=== PATIENT | male | born 1970 | race Caucasian/White ===

== ENCOUNTER → 2018-04-26 11:32 | Outpatient (CLI) | payer OTHER, SELFPAY ==
--- NOTE | 2018-04-26 | DI.RAD.S_ITS ---
PROCEDURE: XR CHEST 2V INDICATIONS: FRACTURE OF LEFT RIBS, PNEUMOTHORAX, HEMOTHORAX TECHNIQUE: 2 views of the chest were acquired. COMPARISON: None. FINDINGS: Surgical changes and devices: None. Lungs and pleura: No pneumothorax. There is likely a small left pleural effusion and consolidation at the left lung base. Mediastinum: Mediastinal contours are normal. Heart size is normal. Bones and chest wall: There is a displaced posterior left sixth and seventh rib fractures. There may be a displaced eighth rib fracture as well which is poorly characterized. No other chest wall abnormalities. IMPRESSION: 1. Displaced posterior left rib fractures as above. 2. Left pleural effusion and probable basilar consolidation. Left hemothorax could be considered in the differential given chest wall trauma. Short interval followup is recommended with resolution of the patient's symptoms to ensure there is no underlying pulmonary pathology. Dictated by: Radha Moctezuma M.D. on 04/26/2018 at 11:59 Approved by: Radha Moctezuma M.D. on 04/26/2018 at 12:00
== END ==
PROVIDERS: Visit Provider Student in an Organized Health Care Education/Training Program
DX: S22.42XA Multiple fractures of ribs, left side, initial encounter for closed fracture (principal); J90 Pleural effusion, not elsewhere classified
CPT/HCPCS: 71046

== ENCOUNTER → 2018-05-12 14:45 | Outpatient (CLI) | payer OTHER, SELFPAY ==
--- NOTE | 2018-05-12 | DI.RAD.S_ITS ---
PROCEDURE: XR CHEST 2V INDICATIONS: PNEUMOTHARAX TECHNIQUE: 2 views of the chest were acquired. COMPARISON: [facility], CR, XR CHEST 2V, 04/26/2018, 11:15. FINDINGS: Surgical changes and devices: None. Lungs and pleura: No pleural effusions or pneumothorax. Lungs are clear. Mediastinum: Mediastinal contours are normal. Heart size is normal. Bones and chest wall: Healing left sixth posterior rib fracture redemonstrated. No suspicious bony abnormalities. Soft tissues appear unremarkable. IMPRESSION: 1. Subacute left sixth posterior rib fracture otherwise no acute cardiopulmonary disease. No pneumonia or pneumothorax. Dictated by: Joaquín Mckee RRA Interpreted: Matt Morales MD on 05/12/2018 at 15:45 Approved by: Matt Morales M.D. on 05/13/2018 at 9:44
== END ==
PROVIDERS: Visit Provider Student in an Organized Health Care Education/Training Program
DX: S22.32XD Fracture of one rib, left side, subsequent encounter for fracture with routine healing (principal); R05 Cough
CPT/HCPCS: 71046

== ENCOUNTER 2018-09-27 18:07 | Emergency (ER) | payer OTHER, SELFPAY ==
[2018-09-27 18:19] VITALS: BP 155/97; PULSE 105; RESP 14; TEMP 36.4; O2SAT 98; BMI 35.2
--- NOTE | 2018-09-27 19:55 | PC.NURSE ---
Pt states that 2 weeks ago he was at work,developed a blister like rash that itched on his arms and chest. Pt states that he went home,took some Benadryl and it went away. Pt concerned that around his abdomen thought since he has pain that feels deep within. It happened again at work 3 days ago,took Benadryl again and it went away. Pt still having pain around lower abdomen. Pt denies any difficulty breathing
--- NOTE | 2018-09-27 20:12 | ED.SKABFB ---
HPI - Skin/Abscess/Foreign Bdy General Chief complaint: Skin/Abscess/Foreign Body Stated complaint: Thinks shingles Time Seen by Provider: 09/27/18 19:23 Source: patient Mode of arrival: ambulatory Limitations: no limitations History of Present Illness HPI narrative: Otherwise healthy 48-year-old male here for evaluation of burning sensation on his bilateral lower abdomen around his pant line for the past several weeks. He states several weeks ago he also had itching on his arms and upper body. He denies any new exposures. No new soaps lotions or shampoos. No fevers. He is concerned about shingles. No blisters. Related Data Previous Rx's Medication Instructions Recorded acyclovir 800 mg PO 5XD 7 Days #35 tab 09/27/18 Allergies Allergy/AdvReac Type Severity Reaction Status Date / Time No Known Drug Allergies Allergy Verified 09/27/18 18:19 Review of Systems Constitutional Denies fever(s) Eyes Denies itchy eyes ENT Ears, Nose, Mouth, and Throat: Denies throat swelling Cardiovascular Denies chest pain and Denies dyspnea Respiratory Denies dyspnea and Denies wheezing Gastrointestinal Gastrointestinal: Denies abdominal pain Integumentary/Breasts Reports pruritus and Reports rash (Which has now resolved) Allergic/Immunologic Denies urticaria, Denies itchy eyes, Denies seasonal rhinorrhea, Denies throat swelling and Denies wheezing [facility] Medical History Healthy adult (Acute) Social History Smoking Status: Current some day smoker Social History Smoking Status: Current some day smoker Exam Initial Vital Signs Initial Vital Signs: Vital Signs Temperature 97.6 F 09/27/18 18:19 Pulse Rate 105 H 09/27/18 18:19 Respiratory Rate 14 09/27/18 18:19 Blood Pressure 155/97 H 09/27/18 18:19 Pulse Oximetry 98 09/27/18 18:19 Const General: cooperative, comfortable, well developed, well groomed and No acute distress Orientation: alert, awake and oriented x3 HENMT Head: normal to inspection and normocephalic Resp Effort & Inspection: normal respiratory effort Auscultation: clear to auscultation bilaterally Cardio Rate: regular rate Rhythm: regular rhythm Skin Lesions: no lesions Rashes: no rashes Trauma: no abrasions Neuro General: alert, awake and oriented x3 Cognition: normal cognition Speech: speech normal Extrem General: normal to inspection and capillary refill normal Course Vital Signs - 8 hr 09/27/18 18:19 Temperature 97.6 F Pulse Rate 105 H Respiratory Rate 14 Blood Pressure 155/97 H Pulse Oximetry 98 MDM - Skin/Abscess/Foreign Bdy MDM Narrative Medical decision making narrative: Patient has no rash today. Has had burning in his lower abdomen for the past several weeks without any rash. Is also bilateral. Informed him that this is most likely not shingles given the fact that it is bilateral and has not developed a rash in the past several weeks. I do suspect this is a contact dermatitis. Patient was extremely concerned about shingles. Will send home with a prescription for antivirals. Informed him that he should wait to see if any rash develops if it does then he can start taking it. Otherwise he should follow up with his primary doctor. We did discuss the use of antihistamines. He was given return precautions. He expressed understanding and agreement with plan. Discharge Plan Departure Patient Disposition: Home Clinical Impression: Rash, Pruritus Discharge Date/Time: 09/27/18 20:29 Interventions: ED Discharge Assessment Last Done: 09/27/18 20:29 Instructions: DI for Rash, DI for Itching Activity Restrictions/Additional Instructions: Recommend he start taking a daily allergy medication. You can take the shingles medicine like we discussed. Also recommend you take a moisturizing cream. Contact your primary care doctor as a follow-up. Return to the emergency department for any new or worsening symptoms Prescriptions: New acyclovir 800 mg tablet 800 mg PO 5XD 7 Days Qty: 35 RF: 0 Referrals: Ethel Beck PA-C [Primary Care Provider] -
== END 2018-09-27 20:29 | disposition home or self-care (01) ==
PROVIDERS: Emergency Provider Emergency Medicine; PCP Physician Assistant
DX: R21 Rash and other nonspecific skin eruption (principal); L29.9 Pruritus, unspecified
CPT/HCPCS: 99282; 99283

== ENCOUNTER 2019-09-08 19:53 | Emergency (ER) | payer OTHER, SELFPAY ==
[2019-09-08 20:00] VITALS: BP 170/108; PULSE 76; RESP 15; TEMP 36.6; O2SAT 96; BMI 35.2
--- NOTE | 2019-09-08 20:13 | DI.RAD.S_ITS ---
PROCEDURE: XR CHEST 1V INDICATIONS: Possible stroke TECHNIQUE: One view of the chest was acquired. COMPARISON: [facility], CR, XR CHEST 2V, 05/12/2018, 14:54. FINDINGS: Surgical changes and devices: None. Lungs and pleura: Lungs are clear. No pleural effusions or pneumothorax. Mediastinum: Mediastinal contours appear normal. Heart size is normal. Bones and chest wall: No suspicious bony lesions. Overlying soft tissues appear unremarkable. IMPRESSION: No acute cardiopulmonary pathology. Dictated by: Moises Mitchell M.D. on 09/08/2019 at 20:31 Approved by: Moises Mitchell M.D. on 09/08/2019 at 20:34
--- NOTE | 2019-09-08 20:13 | DI.CT.S_ITS ---
PROCEDURE: CT HEAD/BRAIN WO CON INDICATIONS: blurred vision TECHNIQUE: Noncontrast 4.5 mm thick angled axial sections acquired from the foramen magnum to the vertex, with coronal and sagittal reformats. For radiation dose reduction, the following was used: automated exposure control, adjustment of mA and/or kV according to patient size. COMPARISON: None. FINDINGS: Image quality: Excellent. CSF spaces: Basal cisterns are patent. No extra-axial fluid collections. Ventricles are normal in size and shape. Brain: No midline shift. No intracranial masses or hemorrhage. Kelsey-white matter interface is normal. Skull and face: Calvarium and visualized facial bones are intact, without suspicious lesions. Sinuses: Visualized sinuses and mastoids are clear. IMPRESSION: No CT evidence of acute intracranial pathology. Dictated by: Moises Mitchell M.D. on 09/08/2019 at 20:29 Approved by: Moises Mitchell M.D. on 09/08/2019 at 20:31
--- NOTE | 2019-09-08 20:35 | ED.NEUROSD ---
HPI - Neuro Symptoms/Deficit General Chief Complaint: Neuro Symptoms/Deficit Stated Complaint: Vision Is Off For 4-5 days Time Seen by Provider: 09/08/19 20:04 Source: patient Mode of arrival: Family Vehicle Limitations: no limitations History of Present Illness HPI Narrative: 49-year-old male smoker with hypertension presents with his in the chief complaint of vision problems for the past 4-5 days. He states that over that time frame he has had a persistent vision change which is evidenced by double vision when looking with both of his eyes. He states his notably worse if he looks up and seems to improve a bit when he looks down. He is unable to state if the images are [id number] or on top of 1 another only that he sees double. One 1 eyes closed (or the other) he sees just fine with a single sharp image. He denies any floaters or flashers. Additionally he has some right-sided facial numbness and may have had an episode of some slurring of his speech. He denies other focal neurologic findings such as numbness, weakness or tingling of his extremities or trouble with balance. He denies any recent injury, fever or chills. He has had no recent travel or exposure to ill persons. He has no history of TIA or stroke. Onset (ago): day(s) Timing confirmed by: family member Location: right face and other History of same: No Severity: mild On Anticoagulants: No Associated symptoms: denies other symptoms Treatments Prior to Arrival: none Related Data Allergies Allergy/AdvReac Type Severity Reaction Status Date / Time No Known Drug Allergies Allergy Verified 09/27/18 18:19 Review of Systems Constitutional Constitutional: Denies chills, Denies fatigue, Denies fever(s), Denies frequent falls, Denies lethargy and Denies weakness Eyes Eyes: Reports change in vision, Denies eye discharge, Denies irritation and Denies loss of vision ENT Ears, Nose, Mouth, and Throat: Denies change in voice, Denies dizziness, Denies neck pain, Denies sore throat and Denies throat swelling Cardiovascular Cardiovascular: Denies chest pain, Denies irregular heart rhythm, Denies lightheadedness, Denies palpitations, Denies dyspnea, Denies dyspnea on exertion and Denies orthopnea Respiratory Respiratory: Denies cough, Denies dyspnea, Denies dyspnea on exertion and Denies wheezing Gastrointestinal Gastrointestinal: Denies abdominal pain, Denies change in bowel habits, Denies diarrhea, Denies nausea and Denies vomiting Genitourinary Genitourinary: Denies hematuria, Denies flank pain, Denies urinary incontinence and Denies urinary urgency Musculoskeletal Musculoskeletal: Denies back pain, Denies muscle weakness, Denies neck pain, Denies numbness and Reports tingling Integumentary/Breasts Skin/Breast: Denies pruritus, Denies erythema, Denies rash and Denies wounds Neurologic Neurologic: Denies behavioral changes, Denies confusion, Denies dizziness, Denies frequent falls, Denies loss of vision, Denies numbness, Reports tingling and Denies weakness Psychiatric Psychiatric: Denies anxiety, Denies behavioral changes, Denies confusion, Denies depression, Denies homicidal ideation and Denies suicidal ideation Endocrine Endocrine: Denies fatigue, Denies flushing and Denies palpitations Hematologic/Lymphatic Hematologic/Lymphatic: Denies easy bruising Allergic/Immunologic Allergic/Immunologic: Denies urticaria, Denies throat swelling and Denies wheezing Patient History Medical History Healthy adult (Acute) Social History Smoking Status: Current some day smoker Smoking Status: Current some day smoker alcohol intake frequency: a few times a week Substance Use Type: does not use Exam Narrative Exam Narrative: GENERAL: [49] year old patient appears stated age. Well-nourished, well-developed patient, in mild distress. HEAD: Atraumatic. Normocephalic. EYES: Pupils equal round and reactive. Extraocular motions intact. No scleral icterus. No injection or drainage. ENT: Nose without bleeding, purulent drainage. Throat without erythema, tonsillar hypertrophy or exudate. Airway patent. NECK: Trachea midline. Non tender CARDIOVASCULAR: Regular rate and rhythm without murmurs, gallops, or rubs. RESPIRATORY: Clear to auscultation. Breath sounds equal bilaterally. No wheezes, rales, or rhonchi. GASTROINTESTINAL: Abdomen soft, non-tender, nondistended. EXTREMITIES: No edema or joint tenderness. BACK: Nontender without deformity or crepitance. No flank tenderness. NEURO: AOx3. SKIN: No rash or erythema of visible areas Initial Vital Signs Initial Vital Signs: Vital Signs Temperature 97.8 F 09/08/19 20:00 Pulse Rate 76 09/08/19 20:00 Respiratory Rate 15 09/08/19 20:00 Blood Pressure 170/108 H 09/08/19 20:00 Pulse Oximetry 96 09/08/19 20:00 Scores NIH Stroke Scale Level of Conciousness: Alert, keenly responsive Ask month/age: Answers both questions correctly. Open/close eyes, close hand: Performs both tasks correctly Best gaze horizontal: Partial gaze palsy, can be overcome by finger tracking, head turning (Noted when looking up and to the right) Visual hernandez: No visual loss Facial palsy: Normal symetrical movement Left arm drift: No drift for full 10 sec Right arm drift: No drift for full 10 sec Left leg drift: No drift for full 10 sec Right leg drift: No drift for full 10 sec Limb ataxia: Absent Sensory on face/arms/legs: Mild to moderate sensory loss, can tell touch Best language: No aphasia, normal Dysarthria: Normal Extinction or inattention: No abnormality Total NIH Stroke scale score: 2 Course Course Course Narrative: Patient rapidly assessed in taken almost directly to CT but did not me code stroke or code IR activation criteria Orders Ordered: ED Orders 09/08/19 20:13 CT head/brain wo con Stat XR chest 1V Stat 09/08/19 20:25 EKG-12 Lead Stat 09/08/19 20:30 Complete Blood Count AUTO DIFF Stat Comprehensive Metabolic Panel Stat Partial Thromboplastin Time Stat Prothrombin Time INR Stat Troponin & CK Cardiac Panel Stat 09/08/19 22:30 Urinalysis and Microscopic Stat Urine Drug Screen, Rapid Stat 09/08/19 22:52 CT angio head and neck Stat Discontinued Medications Aspirin (Aspirin Chew) 324 mg PO NOW ONE Stop: 09/08/19 22:00 Last Admin: 09/08/19 22:19 Dose: 324 mg Documented by: NOLVIA Toro Consultation #1: Arabic stroke neurologist consulted and we sure the opinion that this patient has symptoms consistent with stroke, although minor. She recommends admission and typical stroke evaluation including MRI and echocardiogram as well as aspirin. Consultation #2: Call to hospitalist but admission unfortunately refused given lack of access to available tele beds. Patient states he would [facility] over other options for transfer Consultation #3: Dr. Mota (hospitalist Health system) happy to accept. Vital Signs Vital signs: Vital Signs - 8 hr 09/08/19 20:00 09/08/19 23:51 09/09/19 01:30 Temperature 97.8 F Pulse Rate 76 73 78 Respiratory Rate 15 22 13 Blood Pressure 170/108 H Blood Pressure [Right Arm] 148/89 H 167/95 H Pulse Oximetry 96 97 100 MDM - Neuro Symptoms/Deficit Lab Data Result diagrams: 09/08/19 20:30 09/08/19 20:30 Labs: Lab Results 09/08/19 09/08/19 09/08/19 Range/Units 20:30 20:30 20:30 WBC 9.0 (4.5-11.0) X10^3/uL RBC 5.26 (4.5-5.9) X10^6/uL Hgb 16.2 (13.5-17.5) g/dL Hct 47.2 (41-53) % MCV 89.8 (80-100) fL MCH 30.7 (26-34) PG MCHC 34.2 (30-36) % RDW 12.3 (11.6-14.8) % Plt Count 278 (150-400) X10^3/uL Neut % (Auto) 52.4 (50-75) % Lymph % (Auto) 37.2 (25-40) % Elbert % (Auto) 7.2 (3-14) % Eos % (Auto) 2.4 (2-4) % Baso % (Auto) 0.8 (0-2) % Neut # (Auto) 4700 (3588-3308) /uL Lymph # (Auto) 3300 (3927-4855) /uL Elbert # (Auto) 600 (0-900) /uL Eos # (Auto) 200 (0-450) /uL Baso # (Auto) 100 (0-100) /uL PT 11.1 (10.1-12.7) SECONDS INR 1.0 (0.9-1.3) APTT 31 (26.4-36.2) SECONDS Sodium 139 (137-145) mmol/L Potassium 4.2 (3.4-5.1) mmol/L Chloride 101 (98-107) mmol/L Carbon Dioxide 29 (22-32) mmol/L BUN 20 (9-20) mg/dL Creatinine 1.00 (0.66-1.25) mg/dL Estimated GFR > 60.0 (>60) mL/min BUN/Creatinine Ratio 20.0 (6-22) Glucose 111 H (70-100) mg/dL Calcium 9.6 (8.4-10.2) mg/dL Total Bilirubin 0.6 (0.2-1.3) mg/dL AST 42 (17-59) IU/L ALT 64 H (<50) IU/L Alkaline Phosphatase 41 (38-126) U/L Total Creatine Kinase 131 (55-170) U/L CK-MB (CK-2) 1.66 (<2.37) ng/mL CK-MB (CK-2) Rel Index 1.3 L (1.5-5.0) % Troponin I < 0.012 (0.01-0.034) ng/mL Total Protein 8.1 (6.3-8.2) g/dL Albumin 4.8 (3.5-5.0) g/dL Globulin 3.3 (1.7-4.1) g/dL Albumin/Globulin Ratio 1.5 (1.0-2.8) Urine Color Urine Appearance Urine pH (4.5-8.0) Ur Specific Hobson (1.000-1.035) Urine Protein (Negative) Urine Glucose (UA) (Negative) g/dL Urine Ketones (NEGATIVE) Urine Occult Blood (Negative) Urine Nitrate (Negative) Urine Bilirubin (NEGATIVE) Urine Urobilinogen (0.2) E.U./dL Ur Leukocyte Esterase (NEGATIVE) Urine RBC (0-5/HPF) Urine WBC (0-5/HPF) Urine Bacteria (None) Ur Culture Indicated? Micro UA Comment U Opiates 300ng/mL cut (Negative) Ur Oxycodone Screen (Negative) Urine Methadone Screen (Negative) Ur Barbiturates Screen (Negative) U Tricyclic Antidepress (Negative) Ur Phencyclidine Scrn (Negative) Ur Amphetamines Screen (Negative) U Methamphetamines Scrn (Negative) Ur MDMA Scrn (Ecstasy) (Negative) U Benzodiazepines Scrn (Negative) Urine Cocaine Screen (Negative) U Marijuana (THC) Screen (Negative) 09/08/19 09/08/19 Range/Units 22:30 22:30 WBC (4.5-11.0) X10^3/uL RBC (4.5-5.9) X10^6/uL Hgb (13.5-17.5) g/dL Hct (41-53) % MCV (80-100) fL MCH (26-34) PG MCHC (30-36) % RDW (11.6-14.8) % Plt Count (150-400) X10^3/uL Neut % (Auto) (50-75) % Lymph % (Auto) (25-40) % Elbert % (Auto) (3-14) % Eos % (Auto) (2-4) % Baso % (Auto) (0-2) % Neut # (Auto) (7130-0424) /uL Lymph # (Auto) (5248-7120) /uL Elbert # (Auto) (0-900) /uL Eos # (Auto) (0-450) /uL Baso # (Auto) (0-100) /uL PT (10.1-12.7) SECONDS INR (0.9-1.3) APTT (26.4-36.2) SECONDS Sodium (137-145) mmol/L Potassium (3.4-5.1) mmol/L Chloride (98-107) mmol/L Carbon Dioxide (22-32) mmol/L BUN (9-20) mg/dL Creatinine (0.66-1.25) mg/dL Estimated GFR (>60) mL/min BUN/Creatinine Ratio (6-22) Glucose (70-100) mg/dL Calcium (8.4-10.2) mg/dL Total Bilirubin (0.2-1.3) mg/dL AST (17-59) IU/L ALT (<50) IU/L Alkaline Phosphatase (38-126) U/L Total Creatine Kinase (55-170) U/L CK-MB (CK-2) (<2.37) ng/mL CK-MB (CK-2) Rel Index (1.5-5.0) % Troponin I (0.01-0.034) ng/mL Total Protein (6.3-8.2) g/dL Albumin (3.5-5.0) g/dL Globulin (1.7-4.1) g/dL Albumin/Globulin Ratio (1.0-2.8) Urine Color Yellow Urine Appearance Clear Urine pH 5.5 (4.5-8.0) Ur Specific Hobson 1.020 (1.000-1.035) Urine Protein Negative (Negative) Urine Glucose (UA) Negative (Negative) g/dL Urine Ketones Negative (NEGATIVE) Urine Occult Blood Negative (Negative) Urine Nitrate Negative (Negative) Urine Bilirubin Negative (NEGATIVE) Urine Urobilinogen 0.2 (0.2) E.U./dL Ur Leukocyte Esterase Negative (NEGATIVE) Urine RBC None seen (0-5/HPF) Urine WBC None seen (0-5/HPF) Urine Bacteria None seen (None) Ur Culture Indicated? Cult not indicated Micro UA Comment Microscopic normal U Opiates 300ng/mL cut Negative (Negative) Ur Oxycodone Screen Negative (Negative) Urine Methadone Screen Negative (Negative) Ur Barbiturates Screen Negative (Negative) U Tricyclic Antidepress Negative (Negative) Ur Phencyclidine Scrn Negative (Negative) Ur Amphetamines Screen Positive H (Negative) U Methamphetamines Scrn Negative (Negative) Ur MDMA Scrn (Ecstasy) Negative (Negative) U Benzodiazepines Scrn Negative (Negative) Urine Cocaine Screen Negative (Negative) U Marijuana (THC) Screen Negative (Negative) Imaging Data CT scan - head: Radiologist's Impression: [place] [address] CT Scan Report Signed Patient: Ben Yates EMR#: [id number] : [id number]:[id number] Age/Sex: 49 / MDate of Service: 09/08/19 Loc: ED Accession Number: [id number] Procedure: CT head/brain wo con Ordering Provider: Edwin Hong D.O. PROCEDURE: CT HEAD/BRAIN WO CON INDICATIONS: blurred vision TECHNIQUE: Noncontrast 4.5 mm thick angled axial sections acquired from the foramen magnum to the vertex, with coronal and sagittal reformats. For radiation dose reduction, the following was used: automated exposure control, adjustment of mA and/or kV according to patient size. COMPARISON: None. FINDINGS: Image quality: Excellent. CSF spaces: Basal cisterns are patent. No extra-axial fluid collections. Ventricles are normal in size and shape. Brain: No midline shift. No intracranial masses or hemorrhage. Kelsey-white matter interface is normal. Skull and face: Calvarium and visualized facial bones are intact, without suspicious lesions. Sinuses: Visualized sinuses and mastoids are clear. IMPRESSION: No CT evidence of acute intracranial pathology. Dictated by: Moises Mitchell M.D. on 09/08/2019 at 20:29 Approved by: Moises Mitchell M.D. on 09/08/2019 at 20:31 CTA Head/Neck: Radiologist's Impression: Preliminary Radiology Interpretation by [facility] Patent head and neck CTA ECG Data Attestation: I personally reviewed and interpreted this ECG as follows: Prior ECG tracings: available for review Interpretation: EKG is normal sinus rhythm rate [ 73] and free of any signs of ischemia or ectopy. No ST segmental elevation or depression. No T wave inversions Critical Care Time Critical Care Time Critical Care Time: Yes Total Critical Care Time: 30 Attestation: The high probability of a clinically significant, sudden or life threatening deterioration of the [Neuro] system(s) required my full and direct attention, intervention and personal management. The aggregate critical care time was [30] minutes. This time is in addition to time spent performing reported procedures but includes the following: [x] Data Review and interpretation [x] Patient assessment and monitoring of vital signs [x] Documentation [x] Medication orders and management Discharge Plan Departure Patient Disposition: [facility] Clinical Impression: Stroke Qualifiers: CVA mechanism: unspecified Qualified Code(s): I63.9 - Cerebral infarction, unspecified Referrals: Anuja Goetz PA-C [Primary Care Provider] -
[2019-09-08 20:44] LABS: Add Manual Diff / Slide Review NO; Basophils Absolute Auto 100 /uL (0-100); Basophils Percent Auto 0.8 % (0-2); Eosinophils Absolute Auto 200 /uL (0-450); Eosinophils Percent Auto 2.4 % (2-4); Hematocrit 47.2 % (41-53); Hemoglobin 16.2 g/dL (13.5-17.5); Lymphocytes Absolute Auto 3300 /uL (1100-4500); Lymphocytes Percent Auto 37.2 % (25-40); Mean Corpuscular HGB Conc 34.2 % (30-36); Mean Corpuscular Hemoglobin 30.7 PG (26-34); Mean Corpuscular Volume 89.8 fL (80-100); Monocytes Absolute Auto 600 /uL (0-900); Monocytes Percent Auto 7.2 % (3-14); Neutrophils Absolute Auto 4700 /uL (1500-7000); Neutrophils Percent Auto 52.4 % (50-75); Platelet Count 278 X10^3/uL (150-400); Red Blood Cell Count 5.26 X10^6/uL (4.5-5.9); Red Cell Distribution Width 12.3 % (11.6-14.8)
[2019-09-08 20:53] LABS: Prothrombin Time 11.1 SECONDS (10.1-12.7)
[2019-09-08 20:56] LABS: PTT Partial Thromboplastin Tim 31 SECONDS (26.4-36.2)
[2019-09-08 20:57] LABS: Alanine Aminotransferase 64 IU/L (<50); Albumin 4.8 g/dL (3.5-5.0); Albumin Globulin Ratio 1.5 (1.0-2.8); Alkaline Phosphatase 41 U/L (38-126); Aspartate Aminotransferase 42 IU/L (17-59); Bilirubin Total 0.6 mg/dL (0.2-1.3); Blood Urea Nitrogen 20 mg/dL (9-20); Calcium 9.6 mg/dL (8.4-10.2); Carbon Dioxide 29 mmol/L (22-32); Chloride 101 mmol/L (98-107); Creatine Kinase 131 U/L (55-170); Estimated Glomerular Filt Rate > 60.0 mL/min (>60); Globulin 3.3 g/dL (1.7-4.1); Glucose 111 mg/dL (70-100); Potassium 4.2 mmol/L (3.4-5.1); Sodium 139 mmol/L (137-145); Total Protein 8.1 g/dL (6.3-8.2)
[2019-09-08 21:09] LABS: Troponin I < 0.012 ng/mL (0.01-0.034)
[2019-09-08 21:13] LABS: CKMB % Relative Index 1.3 % (1.5-5.0); Creatine Kinase MB 1.66 ng/mL (<2.37); HEMOLYSIS 18 (0-50)
[2019-09-08] MEDS: ASPIRIN 81 MG CHEW TAB 324 MG PO (22:19)
[2019-09-08 22:45] LABS: Bacteria Urine None Seen; RBC Urine None Seen (0-5/HPF); WBC Urine None Seen (0-5/HPF)
--- NOTE | 2019-09-08 22:52 | DI.CT.S_ITS ---
PROCEDURE: CT ANGIO HEAD AND NECK INDICATIONS: stroke symptoms x4-5 days TECHNIQUE: Pre-contrast 4.5 mm thick sections acquired from the foramen magnum to the vertex. After the administration of intravenous contrast, 1 mm thick sections acquired from the aortic arch through the [place] of [place]. Post-contrast 4.5 mm thick sections then re-acquired from the foramen magnum to the vertex. 3-dimensional cbmhllo-xewmdmxuy-stcfekxfhr (MIP) and/or volume rendering reformats were acquired of the central intracranial vasculature and neck separately. COMPARISON: None. FINDINGS: Image quality: Excellent. BRAIN: CSF spaces: Ventricles are normal in size and shape. Basal cisterns are patent. No extra-axial fluid collections. Brain: No midline shift. No intracranial bleeds or masses. Kelsey-white matter interface appears intact. Skull and face: Calvarium and facial bones appear intact, without suspicious lesions. Orbits appear normal. Sinuses: Sinuses and mastoids are clear. HEAD CT ANGIOGRAPHY: Anterior circulation: Intracranial internal carotid arteries are normal in size and flow. The flow within the paired anterior cerebral arteries is normal and symmetric. The flow within the middle cerebral arteries is normal and symmetric. The anterior communicating artery is seen. No aneurysms are seen. Posterior circulation: Visualized portions of the vertebral arteries demonstrate normal caliber, and join to form a normal appearing basilar artery. Flow within the posterior cerebral arteries is normal and symmetric. No aneurysms are seen. NECK CT ANGIOGRAPHY: Carotid system: The great vessels demonstrate a conventional anatomy as they arise from the aortic arch. The origins of the common carotid arteries appear patent. The common carotid arteries demonstrate normal caliber and courses. The bifurcation regions are both widely patent. The internal carotid arteries demonstrate normal calibers and courses. Posterior circulation: The origins of the vertebral arteries both appear widely patent. The more superior extracranial portions of both vertebral arteries also demonstrate normal courses and calibers. They join to form a normal appearing basilar artery. Soft tissues: Visualized neck soft tissues demonstrate no suspicious abnormalities. Bones: No suspicious bony lesions. Visualized cervical spine appears normally aligned. IMPRESSION: 1. No stenosis, occlusion, or aneurysm. 2. No acute intracranial findings. Any quantitative measurements of stenosis were performed using NASCET criteria. Dictated by: Radha Moctezuma M.D. on 09/09/2019 at 7:32 Approved by: Radha Moctezuma M.D. on 09/09/2019 at 7:38
[2019-09-08 22:54] LABS: UR Morphine/Opiate cutoff 300 Negative (Negative); Ur Creatinine Normal (Normal); Ur Specific Gravity Normal (Normal); Urine Amphetamines Positive (Negative); Urine Barbiturates Negative (Negative); Urine Benzodiazepines Negative (Negative); Urine Cocaine Negative (Negative); Urine MDMA Negative (Negative); Urine Methadone Negative (Negative); Urine Methamphetamines Negative (Negative); Urine Oxycodone Negative (Negative); Urine Phencyclidine Negative (Negative); Urine Tetrahydrocannabinol Negative (Negative); Urine Tricyclic Antidepressant Negative (Negative); Urine pH Normal (Normal)
[2019-09-08 22:57] LABS: Appearance Urine UA CLEAR; Bilirubin Urine UA NEGATIVE (NEGATIVE); Color Urine UA YELLOW; Glucose Urine UA NEGATIVE (Negative); Ketones Urine UA NEGATIVE (NEGATIVE); Leukocyte Esterase Urine UA NEGATIVE (NEGATIVE); Nitrite Urine UA NEGATIVE (Negative); Occult Blood Urine UA NEGATIVE (Negative); Protein Urine UA NEGATIVE (Negative); Urobilinogen Urine UA 0.2 E.U./dL (0.2); pH Urine UA 5.5 (4.5-8.0)
[2019-09-08 23:16] LABS: Culture Indicated Urine Cult Not Indicated; Urine Comments Microscopic Normal
[2019-09-08 23:51] VITALS: BP 148/89; PULSE 73; RESP 22; O2SAT 97
[2019-09-09 01:30] VITALS: BP 167/95; PULSE 78; RESP 13; O2SAT 100
== END 2019-09-09 03:01 | disposition short-term general hospital (02) ==
PROVIDERS: Emergency Provider Emergency Medicine; PCP Student in an Organized Health Care Education/Training Program
DX: I63.9 Cerebral infarction, unspecified (principal); I10 Essential (primary) hypertension
CPT/HCPCS: 36415; 70450; 70496; 70498; 71045; 80053; 80305; 81001; 82550; 82553; 84484; 85025; 85610; 85730; 93005; 93010; 99284; 99291; Q9967

== ENCOUNTER → 2019-11-15 11:11 | Outpatient (CLI) | payer OTHER, SELFPAY ==
[2019-11-21 03:40] LABS: Testosterone % Fr + Wkly bound 24.9 % (9.0-46.0); Testosterone Fr+Wkly bound 64.9 ng/dL (40.0-250.0); Testosterone, Total 260.8 ng/dL (264.0-916.0)
== END ==
PROVIDERS: PCP Student in an Organized Health Care Education/Training Program; Referring Provider Student in an Organized Health Care Education/Training Program; Visit Provider Student in an Organized Health Care Education/Training Program
DX: R79.89 Other specified abnormal findings of blood chemistry (principal)
CPT/HCPCS: 36415; 84403